=== PATIENT | male | born 1950 | race Caucasian/White ===

== ENCOUNTER 2016-12-18 18:20 | Inpatient (IN) | payer MEDICARE, MEDICAID ==
[~2016-12-18] VITALS: Ht 167.6 cm; Wt 69.4 kg
[2016-12-18] MEDS ORDERED: ONDANSETRON HCL 4MG/2ML VIAL IV STA (18:49)
[2016-12-18] MEDS ORDERED: SODIUM CHLORIDE 0.9% 1,000 ML IV ONE (18:49)
[2016-12-18] MEDS ORDERED: PANTOPRAZOLE SODIUM 40 MG/VIAL IV STA (18:49)
[2016-12-18] MEDS ORDERED: FOLIC ACID 1 MG, THIAMINE HCL 100 MG, MVI, ADULT NO.1 10 ML in DEXTROSE 5% WATER 1,000 ML IV ONE ×4 (19:00)
[2016-12-18] MEDS ORDERED: LORAZEPAM 2MG/ML CPJ IV ONE (19:00)
[2016-12-18 19:25] LABS: HEMATOCRIT. 39.5 % (42.0-52.0); HEMOGLOBIN. 13.7 g/dL (14.0-18.0); MEAN CORPUSCULAR HEMOGLOBIN 32.1 pg (28.0-32.0); MEAN CORPUSCULAR VOLUME 92.7 fL (80.0-94.0); MEAN PLATELET VOLUME 8.3 fl (7.4-10.4); PLATELET 218 x1000/uL (130-400); RED BLOOD CELL COUNT 4.27 mill/uL (4.7-6.1)
[2016-12-18 19:31] LABS: CHLORIDE 104 mEq/L (98-107)
[2016-12-18 19:32] LABS: INR 1.1; PROTHROMBIN TIME 11.4 sec (9.4-11.6)
[2016-12-18 19:37] LABS: CARBON DIOXIDE 13 mEq/L (21-32); ETHANOL BLOOD 104 mg/dL
[2016-12-18 19:41] LABS: TROPONIN I < 0.02 ng/mL (0.00-0.04)
[2016-12-18] MEDS ORDERED: [UNRECOGNIZED DRUG - REMARK] IV SCH ×4 (20:00)
[2016-12-18] MEDS ORDERED: SODIUM CHLORIDE 0.9% 1000ML BAG (SEPSIS BOLUS) IV SCH (20:00)
[2016-12-18] MEDS ORDERED: KCL 10MEQ/50ML PREMIX 50 ML IV SCH ×2 (20:00→23:15)
[2016-12-18 20:08] LABS: ATYPICAL LYMPHOCYTES 2; PLATELET ESTIMATE NORMAL
[2016-12-18 20:35] LABS: CLARITY URINE CLEAR (CLEAR); COLOR URINE YELLOW (YELLOW); GLUCOSE URINE TRACE (NEGATIVE); KETONES URINE 4+ (NEGATIVE); LEUKOCYTE ESTERASE URINE NEGATIVE (NEGATIVE); NITRITE URINE NEGATIVE (NEGATIVE); OCCULT BLOOD URINE NEGATIVE (NEGATIVE); PROTEIN URINE 1+ (NEGATIVE); SPECIFIC GRAVITY URINE 1.025 (1.005-1.030)
[2016-12-18 20:43] LABS: *AMPHETAMINES SCREEN URINE NEGATIVE (NEGATIVE); *BARBITURATES SCREEN URINE NEGATIVE (NEGATIVE); *BENZODIAZEPINES SCREEN URINE NEGATIVE (NEGATIVE); *COCAINE SCREEN URINE NEGATIVE (NEGATIVE); CANNABINOID URINE SCREEN NEGATIVE (NEGATIVE); METHADONE URINE SCREEN NEGATIVE (NEGATIVE); OPIATES URINE SCREEN NEGATIVE (NEGATIVE); PHENCYCLIDINE URINE SCREEN NEGATIVE (NEGATIVE)
[2016-12-18] MEDS ORDERED: ONDANSETRON HCL 4MG/2ML VIAL IV PRN (21:45)
[2016-12-18] MEDS ORDERED: LORAZEPAM 2MG/ML CPJ IM PRN (21:45)
[2016-12-18] MEDS ORDERED: CLONIDINE 0.1MG TABLET PO PRN (21:45)
[2016-12-19] MEDS ORDERED: CHLORDIAZEPOXIDE 25MG CAPSULE PO NR (02:03)
[2016-12-19 05:23] LABS: BASOPHILS % 0.9 % (0.0-2.0); CARBON DIOXIDE 22 mEq/L (21-32); CHLORIDE 107 mEq/L (98-107); EOSINOPHILS % 0.1 % (0.0-5.0); HEMATOCRIT. 34.4 % (42.0-52.0); HEMOGLOBIN. 12.1 g/dL (14.0-18.0); MEAN CORPUSCULAR HEMOGLOBIN 32.6 pg (28.0-32.0); MEAN CORPUSCULAR VOLUME 92.4 fL (80.0-94.0); MEAN PLATELET VOLUME 8.5 fl (7.4-10.4); PHOSPHORUS 1.9 mg/dL (2.5-4.9); PLATELET 169 x1000/uL (130-400); RED BLOOD CELL COUNT 3.72 mill/uL (4.7-6.1); RED CELL DISTRIBUTION WIDTH 14.3 % (11.6-14.6)
[2016-12-19] MEDS: LORAZEPAM 2MG/ML CPJ IM PRN (06:22)
[2016-12-19 11:35] VITALS: BP 112/73
[2016-12-19 11:53] VITALS: BP 112/73
[2016-12-19] MEDS ORDERED: MVI, ADULT NO.1 10 ML, FOLIC ACID 1 MG, THIAMINE HCL 100 MG in SODIUM CHLORIDE 0.9% 1,0... IV NR ×4 (12:30)
[2016-12-19] MEDS ORDERED: MAGNESIUM 1 G PREMIX 100 ML IV NR ×2 (12:30→15:00)
[2016-12-19] MEDS: CHLORDIAZEPOXIDE 25MG CAPSULE PO SCH ×2 (13:05→21:08)
[2016-12-19] MEDS: FAMOTIDINE 20MG/2ML VIAL IV SCH ×2 (13:05→21:08)
[2016-12-19] MEDS: SODIUM CHLORIDE 0.9% 1,000 ML IV SCH ×2 (13:06→21:08)
[2016-12-19 16:23] VITALS: BP 115/66
[2016-12-19 20:00] VITALS: BP 138/66
[2016-12-19] MEDS: ACETAMINOPHEN 325MG TABLET PO PRN (21:08)
[2016-12-20] VITALS: BP 123/68
[2016-12-20] MEDS: LORAZEPAM 2MG/ML CPJ IM PRN ×2 (00:57→22:33)
[2016-12-20] MEDS ORDERED: POTASSIUM PHOS,M-BASIC-D-BASIC 20 MMOL in DEXT 5% WATER 243.3333 ML IV NR (01:00)
[2016-12-20 04:00] VITALS: BP 117/65
[2016-12-20] MEDS: CHLORDIAZEPOXIDE 25MG CAPSULE PO SCH ×3 (05:11→21:57)
[2016-12-20] MEDS: SODIUM CHLORIDE 0.9% 1,000 ML IV SCH ×3 (05:13→20:49)
[2016-12-20 08:00] VITALS: BP 120/78
[2016-12-20] MEDS: FAMOTIDINE 20MG/2ML VIAL IV SCH ×2 (08:33→20:30)
[2016-12-20 12:00] VITALS: BP 119/71
[2016-12-20 16:00] VITALS: BP 111/68
[2016-12-20 20:00] VITALS: BP 113/73
[2016-12-21] VITALS: BP 118/73
[2016-12-21 04:00] VITALS: BP 134/63
[2016-12-21] MEDS: CHLORDIAZEPOXIDE 25MG CAPSULE PO SCH ×3 (05:54→21:08)
[2016-12-21] MEDS: SODIUM CHLORIDE 0.9% 1,000 ML IV SCH ×2 (05:55→20:11)
[2016-12-21 07:34] VITALS: BP 124/91
[2016-12-21] MEDS: FAMOTIDINE 20MG/2ML VIAL IV SCH ×2 (08:45→20:11)
[2016-12-21 12:13] VITALS: BP 115/72
[2016-12-21 16:02] VITALS: BP 126/77
[2016-12-21 20:00] VITALS: BP 131/81
[2016-12-21] MEDS: DIPHENHYDRAMINE 50MG/ML VIAL IV PRN (21:09)
[2016-12-21] MEDS: LORAZEPAM 2MG/ML CPJ IM PRN (21:09)
[2016-12-22] VITALS: BP 123/65
[2016-12-22 04:00] VITALS: BP 136/78
[2016-12-22] MEDS: SODIUM CHLORIDE 0.9% 1,000 ML IV SCH (04:08)
[2016-12-22] MEDS: DIPHENHYDRAMINE 50MG/ML VIAL IV PRN (04:08)
[2016-12-22] MEDS: LORAZEPAM 2MG/ML CPJ IM PRN (04:08)
[2016-12-22] MEDS: CHLORDIAZEPOXIDE 25MG CAPSULE PO SCH (05:47)
[2016-12-22 07:20] LABS: BASOPHILS % 1.1 % (0.0-2.0); EOSINOPHILS % 5.1 % (0.0-5.0); HEMOGLOBIN. 11.7 g/dL (14.0-18.0); LYMPHOCYTES % 22.4 % (20.0-50.0); MEAN CORPUSCULAR HEMOGLOBIN 32.9 pg (28.0-32.0); MEAN CORPUSCULAR VOLUME 93.2 fL (80.0-94.0); MEAN PLATELET VOLUME 8.6 fl (7.4-10.4); MONOCYTES % 9.5 % (2.0-8.0); NEUTROPHILS % 61.9 % (40.0-76.0); PLATELET 149 x1000/uL (130-400); RED BLOOD CELL COUNT 3.54 mill/uL (4.7-6.1); RED CELL DISTRIBUTION WIDTH 14.1 % (11.6-14.6)
[2016-12-22 07:26] VITALS: BP 123/76
[2016-12-22] MEDS: FAMOTIDINE 20MG/2ML VIAL IV SCH ×2 (08:41→21:51)
[2016-12-22 10:18] LABS: CARBON DIOXIDE 24 mEq/L (21-32); CHLORIDE 110 mEq/L (98-107); PHOSPHORUS 2.7 mg/dL (2.5-4.9)
[2016-12-22 11:40] VITALS: BP 115/58
[2016-12-22] MEDS: POTASSIUM CHLORIDE 20MEQ TABLET SR PO SCH ×3 (14:38→21:52)
[2016-12-22] MEDS: CHLORDIAZEPOXIDE 5 MG CAPSULE PO SCH ×2 (14:39→21:52)
[2016-12-22] MEDS ORDERED: MAGNESIUM 4 G PREMIX 100 ML IV NR (15:30)
[2016-12-22 16:00] VITALS: BP 114/70
[2016-12-22 20:00] VITALS: BP 113/71
[2016-12-22] MEDS: ACETAMINOPHEN 325MG TABLET PO PRN (22:18)
[2016-12-23] VITALS: BP 118/65
[2016-12-23 04:00] VITALS: BP 111/77
[2016-12-23] MEDS: LORAZEPAM 2MG/ML CPJ IM PRN (04:43)
[2016-12-23] MEDS: ACETAMINOPHEN 325MG TABLET PO PRN (04:44)
[2016-12-23] MEDS: CHLORDIAZEPOXIDE 5 MG CAPSULE PO SCH ×2 (05:34→12:41)
[2016-12-23 07:45] VITALS: BP 102/60
[2016-12-23 08:06] LABS: CARBON DIOXIDE 23 mEq/L (21-32); CHLORIDE 110 mEq/L (98-107)
[2016-12-23] MEDS: FAMOTIDINE 20MG/2ML VIAL IV SCH ×2 (08:42→21:00)
[2016-12-23 11:59] VITALS: BP 94/62
[2016-12-23 15:39] VITALS: BP 96/55
[2016-12-23 20:00] VITALS: BP 103/69
[2016-12-24] VITALS: BP 106/70
[2016-12-24] MEDS: ACETAMINOPHEN 325MG TABLET PO PRN (02:56)
[2016-12-24 04:00] VITALS: BP 100/72
[2016-12-24 08:00] VITALS: BP 116/74
[2016-12-24] MEDS: FAMOTIDINE 20MG/2ML VIAL IV SCH ×2 (08:36→20:36)
[2016-12-24 12:00] VITALS: BP 98/63
[2016-12-24 16:00] VITALS: BP 106/66
[2016-12-24 20:00] VITALS: BP 100/70
[2016-12-24] MEDS: QUETIAPINE FUMARATE 25MG TABLET PO SCH (20:36)
[2016-12-25] VITALS (7 sets, daily range): BP systolic 83–120; BP diastolic 53–77
[2016-12-25] MEDS: FAMOTIDINE 20MG/2ML VIAL IV SCH ×2 (08:01→20:54)
[2016-12-25] MEDS: QUETIAPINE FUMARATE 25MG TABLET PO SCH (08:01)
[2016-12-25] MEDS: SODIUM CHLORIDE 0.9% 1,000 ML IV SCH ×3 (10:19→18:25)
[2016-12-25] MEDS: ACETAMINOPHEN 325MG TABLET PO PRN (19:29)
[2016-12-26] MEDS ORDERED: LORAZEPAM 2MG/ML CPJ IM PRN (00:45)
[2016-12-26] MEDS: SODIUM CHLORIDE 0.9% 1,000 ML IV SCH (03:48)
[2016-12-26 04:00] VITALS: BP_SYST 107; BP_SYST 94; BP_DIAS 56; BP_DIAS 76
[2016-12-26] MEDS: FAMOTIDINE 20MG/2ML VIAL IV SCH (08:00)
[2016-12-26] MEDS: ACETAMINOPHEN 325MG TABLET PO PRN ×2 (09:55→16:25)
[2016-12-26 12:00] VITALS: BP 102/62
[2016-12-26 20:00] VITALS: BP 111/68
[2016-12-26] MEDS: TEMAZEPAM 15MG CAPSULE PO PRN (22:11)
[2016-12-27] VITALS: BP 98/60
[2016-12-27 04:00] VITALS: BP 111/73
[2016-12-27] MEDS: LORAZEPAM 2MG/ML CPJ IV PRN ×2 (05:05→13:03)
[2016-12-27 07:39] VITALS: BP 117/69
[2016-12-27] MEDS: THIAMINE HCL 100MG TABLET PO SCH (08:14)
[2016-12-27 11:43] VITALS: BP 93/59
[2016-12-27 15:54] VITALS: BP 95/62
[2016-12-27] MEDS: ACETAMINOPHEN 325MG TABLET PO PRN (16:32)
[2016-12-27] MEDS: TEMAZEPAM 15MG CAPSULE PO PRN (21:53)
[2016-12-28 08:00] VITALS: BP 106/66
[2016-12-28] MEDS: THIAMINE HCL 100MG TABLET PO SCH (09:00)
[2016-12-28 12:00] VITALS: BP 101/65
[2016-12-28] MEDS: ACETAMINOPHEN 325MG TABLET PO PRN (12:16)
[2016-12-28 15:09] VITALS: BP 101/65
== END 2016-12-28 16:00 | disposition home or self-care (01) | DRG 775 ==
LOC: ER 18:58 → 8WST 20:46 → EDBEDREQTM 20:49 → EDBEDREQ 20:49 → ENRESERV 12-19 10:49
PROVIDERS: ADMIT Internal Medicine; ATTEND Internal Medicine
DX: F10.231 Alcohol dependence with withdrawal delirium (principal); E87.2 Acidosis; I10 Essential (primary) hypertension; E87.6 Hypokalemia; E86.0 Dehydration; F17.200 Nicotine dependence, unspecified, uncomplicated; Z59.0 Homelessness
CPT/HCPCS: 36415; 71010; 74176; 80048; 80053; 80305; 81001; 83605; 83690; 83735; 84100; 84484; 85025; 85610; 87040; 87086; 93005; 96361; 96365; 96366; 96375; 96376; 97116; 97162; 99285; C1893; C9113; G0482; J1200; J2060; J2405; J3411; J3475; J3480; J3490; J7030; J7040; J7060; J7070